=== PATIENT | male | born 1955 | race Caucasian/White ===

== ENCOUNTER → 2017-01-25 | Outpatient (CLI) | payer BC ==
[~2017-01-25] MED LIST: ASPEC325 PO; ATEN50TA8 PO; DRV100 PO; IBUP-1050 PO; KETOPROFEN TOP; LISI-461 PO; SIMV20TA2 PO; [UNRECOGNIZED DRUG - OTHER] PO
[2017-01-25 11:53] LABS: ALT/SGPT 29 U/L (12-78); AST/SGOT 14 U/L (15-37); BLOOD UREA NITROGEN 17 mg/dl (7-18); BUN/CREATININE RATIO 22.3 (10-20); CALCIUM 8.6 mg/dl (8.5-10.1); CARBON DIOXIDE 25 mmol/L (21-32); CHLORIDE 108 mmol/L (98-107); CREATININE 0.75 mg/dl (0.60-1.40); GLUCOSE 103 mg/dl (70-99); POTASSIUM 4.2 mmol/L (3.5-5.1); SODIUM 141 mmol/L (136-145)
[2017-01-25 12:12] LABS: CHOLESTEROL 188 mg/dl (0-200); CHOLESTEROL/HDL RATIO 3.1; HDL CHOLESTEROL 60 mg/dl; LDL CHOLESTEROL CALCULATED 106 mg/dl; TRIGLYCERIDES 111 mg/dl (0-150); VERY LOW DENSITY LIPOPROT CALC 22 mg/dl
--- NOTE | 2017-01-31 12:16 | CODING QUERY MEDICAL NECESSITY ---
SUPPORTING DIAGNOSIS NEEDED A supporting diagnosis is required for the test/procedure performed on this patient in order for us to be reimbursed by the patient's insurance. Please provide a supporting diagnosis for the following test/procedure listed below next to the test name along with your signature. *If there is no additional diagnosis for this patient that would support the following test/procedure please document that below next to the test/procedure. Test(s)/Procedure(s) that require a supporting diagnosis: * PSA DIAGNOSIS: Provider Signature: Date: Thank you Katey Lara [employer] Once completed, please kindly fax back to [phone] For questions please call [phone]
== END | disposition home or self-care (01) ==
LOC: C.LABBC 07:45
PROVIDERS: ATTEND Internal Medicine
DX: Z00.00 Encounter for general adult medical examination without abnormal findings (principal); E78.00 Pure hypercholesterolemia, unspecified; I10 Essential (primary) hypertension; Z12.5 Encounter for screening for malignant neoplasm of prostate

== ENCOUNTER → 2017-10-27 | Outpatient (CLI) | payer BC ==
[2017-10-27 11:25] LABS: ALT/SGPT 31 U/L (12-78); AST/SGOT 18 U/L (15-37); BLOOD UREA NITROGEN 15 mg/dl (7-18); CALCIUM 9.1 mg/dl (8.5-10.1); CARBON DIOXIDE 25 mmol/L (21-32); CHOLESTEROL 148 mg/dl (0-200); CREATININE 0.73 mg/dl (0.60-1.40); GLUCOSE 101 mg/dl (70-99); POTASSIUM 4.1 mmol/L (3.5-5.1); SODIUM 137 mmol/L (136-145)
[2017-10-27 11:28] LABS: LDL CHOLESTEROL CALCULATED 70 mg/dl
== END | disposition home or self-care (01) ==
LOC: C.LABBC 07:53
PROVIDERS: ATTEND Internal Medicine
DX: E78.00 Pure hypercholesterolemia, unspecified (principal); I10 Essential (primary) hypertension

== ENCOUNTER → 2017-11-15 | Outpatient (CLI) | payer BC | END | disposition home or self-care (01) | LOC: C.RDSM 08:38 | PROVIDERS: ATTEND Orthopaedic Surgery | DX: R10.30 Lower abdominal pain, unspecified (principal) ==